=== PATIENT | male | born 1990 | race Two or more races ===

== ENCOUNTER 2016-03-12 08:24 | Outpatient (CLI) | payer OTHER | END 2016-03-12 08:25 | disposition home or self-care (01) | DX: Z00.00 Encounter for general adult medical examination without abnormal findings (principal) ==

== ENCOUNTER 2016-03-14 08:07 | Outpatient (CLI) | payer OTHER | END 2016-03-14 08:08 | disposition home or self-care (01) | DX: N39.0 Urinary tract infection, site not specified (principal) ==

== ENCOUNTER 2016-03-17 08:00 | Outpatient (CLI) | payer OTHER | END 2016-03-17 08:01 | disposition home or self-care (01) | DX: N39.0 Urinary tract infection, site not specified (principal) ==